=== PATIENT | female | born 1985 | race Caucasian/White ===

== ENCOUNTER 2017-07-20 16:47 | Emergency (ER) | payer OTHER ==
[2017-07-20 17:01] VITALS: BP 160/88
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
[2017-07-20] MEDS ORDERED: Mupirocin Oint 22 GM Tube TOP SCH (17:15)
== END 2017-07-20 17:20 | disposition home or self-care (01) ==
LOC: JD.ED 16:47
DX: T21.47XA Corrosion of unspecified degree of female genital region, initial encounter (principal); I10 Essential (primary) hypertension
CPT/HCPCS: 99283; A9270; 99282

== ENCOUNTER 2018-02-19 12:38 | Observation (INO) | payer BC, OTHER ==
--- NOTE | 2018-02-19 13:07 | EDM.PDOC ---
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 Urine WBC 0-5 (0-5) /hpf Ur Epithelial Cells 0-5 (0-5) /hpf Urine Bacteria Rare (FEW) /hpf Urine Mucus Not seen (FEW) /hpf Urine Opiates Screen Negative (NEGATIVE) Ur Buprenorphine Scrn Negative (NEGATIVE) Ur Oxycodone Screen Negative (NEGATIVE) Urine Methadone Screen Negative (NEGATIVE) Ur Propoxyphene Screen Negative (NEGATIVE) Ur Barbiturates Screen Negative (NEGATIVE) Ur Tricyclics Screen Negative (NEGATIVE) Ur Phencyclidine Scrn Negative (NEGATIVE) Ur Amphetamine Screen Negative (NEGATIVE) U Methamphetamines Scrn Negative (NEGATIVE) U Benzodiazepines Scrn Negative (NEGATIVE) U Cocaine Metab Screen Negative (NEGATIVE) U Marijuana (THC) Screen Negative (NEGATIVE) Ethyl Alcohol (0.00) gm% 02/19/18 02/19/18 02/19/18 Range/Units 19:50 19:50 19:50 WBC (3.98-10.04) K/mm3 RBC (3.98-5.22) M/mm3 Hgb (11.2-15.7) gm/L Hct (34.1-44.9) % MCV (79.4-94.8) fl MCH (25.6-32.2) pg MCHC (32.2-35.5) g/dl RDW Std Deviation (36.4-46.3) fL Plt Count (182-369) K/mm3 MPV (9.4-12.3) fl Neutrophils % (Manual) (40-60) % Band Neutrophils % (0-10) % Lymphocytes % (Manual) (20-40) % Atypical Lymphs % % Monocytes % (Manual) (2-10) % Eosinophils % (Manual) (0.7-5.8) % Basophils % (Manual) (0.1-1.2) Platelet Estimate Plt Morphology Comment RBC Morph Comment D-Dimer, Quantitative (0.19-0.50) mg/L Sodium (136-145) mEq/L Potassium (3.5-5.1) mEq/L Chloride (98-107) mEq/L Carbon Dioxide (21-32) mEq/L Anion Gap (5-15) BUN (7-18) mg/dL Creatinine (0.55-1.02) mg/dL Est Cr Clr Drug Dosing mL/min Estimated GFR (MDRD) (>60) mL/min BUN/Creatinine Ratio (14-18) Glucose (74-106) mg/dL Calcium (8.5-10.1) mg/dL Magnesium 1.5 L (1.8-2.4) mg/dl Total Bilirubin (0.2-1.0) mg/dL AST (15-37) U/L ALT (14-59) U/L Alkaline Phosphatase (46-116) U/L Total Protein (6.4-8.2) g/dl Albumin (3.4-5.0) g/dl Globulin gm/dL Albumin/Globulin Ratio (1-2) Lipase (73-393) U/L TSH 3rd Generation (0.358-3.74) uIU/mL HCG, Qual Negative (NEGATIVE) Urine Color (Yellow) Urine Appearance (Clear) Urine pH (5.0-8.0) Ur Specific Roosevelt (1.005-1.030) Urine Protein (Negative) Urine Glucose (UA) (Negative) Urine Ketones (Negative) Urine Occult Blood (Negative) Urine Nitrite (Negative) Urine Bilirubin (Negative) Urine Urobilinogen (0.2-1.0) Ur Leukocyte Esterase (Negative) Urine RBC (0-5) /hpf Urine WBC (0-5) /hpf Ur Epithelial Cells (0-5) /hpf Urine Bacteria (FEW) /hpf Urine Mucus (FEW) /hpf Urine Opiates Screen (NEGATIVE) Ur Buprenorphine Scrn (NEGATIVE) Ur Oxycodone Screen (NEGATIVE) Urine Methadone Screen (NEGATIVE) Ur Propoxyphene Screen (NEGATIVE) Ur Barbiturates Screen (NEGATIVE) Ur Tricyclics Screen (NEGATIVE) Ur Phencyclidine Scrn (NEGATIVE) Ur Amphetamine Screen (NEGATIVE) U Methamphetamines Scrn (NEGATIVE) U Benzodiazepines Scrn (NEGATIVE) U Cocaine Metab Screen (NEGATIVE) U Marijuana (THC) Screen (NEGATIVE) Ethyl Alcohol 0.00 (0.00) gm% Meds: Medications Generic Name Dose Route Start Last Admin Trade Name Freq PRN Reason Stop Dose Admin Cyclobenzaprine HCl 10 mg 02/20/18 09:07 Flexeril PO ASDIRECTED PRN Spasms Sodium Chloride 1,000 mls @ 150 mls/hr 02/20/18 01:00 02/20/18 09:13 Normal Saline IV 150 mls/hr ASDIRECTED BENJAMIN Administration Loperamide HCl 2 mg 02/20/18 09:47 02/20/18 09:57 Imodium PO 2 mg Q6H PRN Administration Diarrhea Loratadine 1 mg 02/20/18 09:07 Claritin PO DAILY PRN Allergies Ondansetron HCl 4 mg 02/19/18 23:48 Zofran IVPUSH Q8H PRN Nausea/Vomiting Pantoprazole Sodium 40 mg 02/20/18 09:00 02/20/18 09:13 Protonix Iv IVPUSH 40 mg Q12H BENJAMIN Administration (Olopatadine) 0 each 02/20/18 09:15 Patanol Opth EYEBOTH Solution ASDIRECTED BENJAMIN Sodium Chloride 10 ml 02/19/18 13:23 02/19/18 13:33 Saline Flush FLUSH 10 ml ASDIRECTED PRN Administration Keep Vein Open Tramadol HCl 50 mg 02/20/18 09:07 Ultram PO Q6H PRN back pain Discontinued Medications Generic Name Dose Route Start Last Admin Trade Name Freq PRN Reason Stop Dose Admin Acetaminophen 975 mg 02/19/18 20:09 02/19/18 20:16 Tylenol PO 02/19/18 20:10 975 mg NOW ONE Administration Al Hydroxide/Mg Hydroxide 30 0 ml 02/19/18 13:23 02/19/18 13:32 ml/ Lidocaine HCl 15 ml PO 02/19/18 13:24 45 ml ONETIME ONE Administration Hydromorphone HCl 0.5 mg 02/19/18 14:08 02/19/18 14:36 Dilaudid IVPUSH 02/19/18 14:09 0.5 mg ONETIME ONE Administration Hydromorphone HCl 0.5 mg 02/19/18 16:18 02/19/18 16:42 Dilaudid IVPUSH 02/19/18 16:19 0.5 mg ONETIME ONE Administration Hydromorphone HCl 0.5 mg 02/19/18 19:47 02/19/18 20:16 Dilaudid IVPUSH 02/19/18 19:48 0.5 mg ONETIME ONE Administration Sodium Chloride 1,000 mls @ 999 mls/hr 02/19/18 13:44 02/19/18 13:48 Normal Saline IV 02/19/18 14:44 999 mls/hr ONETIME ONE Administration Sodium Chloride 1,000 mls @ 999 mls/hr 02/19/18 16:13 02/19/18 16:21 Normal Saline IV 02/19/18 17:13 999 mls/hr ONETIME ONE Administration Pantoprazole Sodium 40 mg/ 100 mls @ 200 mls/hr 02/19/18 16:34 02/19/18 16:55 Sodium Chloride IV 02/19/18 17:03 Not Given ONETIME ONE Sodium Chloride 1,000 mls @ 999 mls/hr 02/19/18 17:37 02/19/18 17:48 Normal Saline IV 02/19/18 18:37 999 mls/hr ONETIME ONE Administration Sodium Chloride 100 mls @ 4 mls/sec 02/19/18 21:06 02/19/18 21:43 Normal Saline IV 02/19/18 21:07 4 mls/sec ONETIME ONE Administration Sodium Chloride 2,000 mls @ 999 mls/hr 02/19/18 22:43 02/20/18 00:43 Normal Saline IV 02/20/18 00:43 999 mls/hr ONETIME ONE Administration Magnesium Sulfate 2 gm/ Premix 50 mls @ 25 mls/hr 02/19/18 23:54 02/20/18 01: 11 IV 02/20/18 01:53 25 mls/hr ONETIME ONE Administration Ibuprofen 600 mg 02/19/18 21:30 02/19/18 21:53 Motrin PO 02/19/18 21:31 600 mg ONETIME ONE Administration Iopamidol 100 ml 02/19/18 21:06 02/19/18 21:42 Isovue-370 (76%) IVPUSH 02/19/18 21:07 100 ml ONETIME ONE Administration Ondansetron HCl 4 mg 02/19/18 13:23 02/19/18 13:32 Zofran IVPUSH 02/19/18 13:24 4 mg ONETIME ONE Administration Ondansetron HCl 4 mg 02/19/18 16:14 02/19/18 16:22 Zofran IVPUSH 02/19/18 16:15 4 mg ONETIME ONE Administration Pantoprazole Sodium 40 mg 02/19/18 16:54 02/19/18 16:59 Protonix Iv IVPUSH 02/19/18 16:55 40 mg ONETIME ONE Administration Sucralfate 1 gm 02/19/18 16:34 02/19/18 16:58 Carafate PO 02/19/18 16:35 1 gm ONETIME ONE Administration - Re-Assessments/Exams Free Text/Narrative Re-Assessment/Exam: I have examined the patient personally. Agree with Brianne LYNN history and findings on examination. Patient has no blood in her stool. Positive orthostatics. She has vomited 11 times with 4 episodes of diarrhea prior to admission. There's been no ingestion of bad or questional food or recent sick contact. Abdominal discomfort is more generalized with the point of maximal pain along the epigastric region. GI cocktail did alleviate some of the discomfort. Pain is 5 out of 10. Will order x-ray of the abdomen 2 view and also Dilaudid 0.5 mg IVP. First bag of fluids is running at this point. She may need a second and or 3rd. X-ray of the abdomen did not reveal any concerning findings. 02/19/18 17:20 IV fluids are completed. Patient is feeling better. Remains tachycardic. 1734 Reassessment, remains tachycardic. Ordered 1 liter of NS. On reexamination no abdominal pain. Patient remains tachycardic. She has developed a fever of 100.6. She is feeling flushed and very warm. HR 120's. 1935 Patient continues to be tachycardic after 3rd bag of NS. Mouth is not dry. TSH WNL. She has no pain. Ordered D-Dimer patient is on BCP. 02/19/18 20:46 D-dimer 1.25. Patient is on control with a persistent tachycardia even after IV fluids. I ordered CT of the chest PE protocol. She is currently on her period. 02/19/18 20:52 Patient got up to the bathroom to use the restroom. [place] flushed with O2 sats 95% on Room air. Complained of worsening pain to her lower abdomen. Orderd CT of the abdomen and pelvis with IV contrast as well. 02/19/18 22:18 CT abdomen with IV contrast IMPRESSION: Hepatomegaly and suggestion of hepatic steatosis. CT of the chest IMPRESSION: No evidence of central pulmonary embolism. Examination is technically limited. Patients BP is 127/70, HR remains 110, SPO2 98%. Patients oral mucosal remains mildly dry. Pain to the epigastric and abdomen has subsided. She is feeling much more relaxed after having the studies obtained. 02/19/18 22:[address] Olivier she has accepted the patient. Will admit to observation for dehydration and persistent tachycardia. Request additional 2 liters of NS wide open then NS 150ml/hr. Mg has been ordered. 02/20/18 10:28 Departure - Departure Time of Disposition: 17:33 Condition: Good - My Orders Last 24 Hours: My Active Orders 02/19/18 22:50 WBC, STOOL [OP] Stat - Assessment/Plan Last 24 Hours: My Active Orders 02/19/18 22:50 WBC, STOOL [OP] Stat
[2018-02-19] MEDS ORDERED: Sodium Chloride 0.9% 10 ML Syringe FLUSH PRN (13:23)
[2018-02-19] MEDS ORDERED: Ondansetron 4 MG/2 ML SDV IVPUSH ONE ×2 (13:23→16:14)
[2018-02-19] MEDS ORDERED: Alum Hydrox/Mag Hydrox/Simeth 30 ML, Lidocaine 2% 15 ML PO ONE ×2 (13:23)
[2018-02-19] MEDS ORDERED: Sodium Chloride 0.9% 1,000 ML IV ONE ×3 (13:44→17:37)
[2018-02-19] MEDS ORDERED: HYDROmorphone 0.5 MG/0.5 ML SYRINGE IVPUSH ONE ×3 (14:08→19:47)
--- NOTE | 2018-02-19 15:04 | CR ---
Abdomen: Supine and upright views of the abdomen were obtained. Comparison: Prior abdominal x-ray of 03/24/16. Surgical clips are seen within the upper right abdomen. Mild scoliosis is noted. Bowel gas pattern appears normal. No free air is seen. No discrete soft tissue abnormality is appreciated. Impression: 1. Incidental findings. Nothing acute is seen on abdominal x-ray. Diagnostic code #2
[2018-02-19] MEDS ORDERED: Pantoprazole 40 MG in Sodium Chloride 0.9% 100 ML IV ONE (16:34)
[2018-02-19] MEDS ORDERED: Sucralfate Suspension 1 GM/10 ML Cup PO ONE (16:34)
[2018-02-19] MEDS ORDERED: Pantoprazole 40 MG Vial IVPUSH ONE (16:54)
[2018-02-19] MEDS ORDERED: Acetaminophen 325 MG Tab PO ONE (20:09)
[2018-02-19] MEDS ORDERED: Iopamidol 755 Mg/ML 100 ML Bottle IVPUSH ONE (21:06)
[2018-02-19] MEDS ORDERED: Sodium Chloride 0.9% 100 ML IV ONE (21:06)
[2018-02-19] MEDS ORDERED: Ibuprofen 600 MG Tab PO ONE (21:30)
[2018-02-19] MEDS: Sodium Chloride 0.9% 2,000 ML IV ONE (23:05)
[2018-02-19] MEDS ORDERED: Ondansetron 4 MG/2 ML SDV IVPUSH PRN (23:48)
[2018-02-19] MEDS ORDERED: Magnesium Sulfate/Water 2 GM in Premix Bag 1 BAG IV ONE (23:54)
[2018-02-20] MEDS: Sodium Chloride 0.9% 2,000 ML IV ONE (00:43)
[2018-02-20] MEDS: Sodium Chloride 0.9% 1,000 ML IV SCH ×2 (01:47→09:13)
--- NOTE | 2018-02-20 07:09 | CT ---
CT abdomen and pelvis Technique: Multiple axial sections were obtained from above the dome of the diaphragm inferiorly to the pubic symphysis. Intravenous contrast was utilized. No oral contrast has been given. Delayed images were also obtained to the bladder. Comparison: No prior abdominal CT exam, previous abdominal x-ray of 03/24/16. Findings: Visualized lung bases show nothing acute. Liver shows diffuse fatty infiltration. No focal abnormality is identified within the liver. Surgical clips are seen from prior cholecystectomy. Adrenal glands show no nodule. Kidneys show symmetric contrast enhancement without hydronephrosis or mass. Pancreas is normal. Aorta shows no aneurysmal dilatation. No retroperitoneal adenopathy or mesenteric abnormalities are seen. No pelvic mass or adenopathy is seen. Appendix is seen which is normal in size. No free fluid or inflammatory change is seen. Bone window settings were reviewed which show disc space narrowing and osteophytes within the lower thoracic spine. Small fat-containing umbilical hernia is incidentally noted. Delayed images show contrast within the bladder. Impression: 1. Fatty infiltration within the liver and prior cholecystectomy. 2. Nothing acute is appreciated on CT study of the abdomen and pelvis. Diagnostic code #2 Agree with preliminary report issued by [employer] ([employer] preliminary report dictated on 02/19/18, 11:13 PM Central Time)
--- NOTE | 2018-02-20 07:09 | CT ---
CT chest Technique: Multiple axial sections through the chest were obtained. Intravenous contrast was utilized. Study has been performed as a pulmonary angiogram protocol. Comparison: Prior CT chest of 03/24/16. Findings: Pulmonary arteries are not optimally opacified. This diminishes details for smaller pulmonary emboli. No filling defects are seen within the main or segmental branches to indicate pulmonary emboli. More distal pulmonary emboli could be missed. Aorta appears within normal limits in size. No dissection is seen. No pericardial effusion is seen. Mediastinum and hilar regions show no adenopathy or mass. No axillary adenopathy is seen. Lungs show no acute parenchymal densities. Minimal dependent atelectasis is incidentally noted. Slight disc space narrowing and osteophytes are noted within mid and lower thoracic spine. No acute osseous abnormality is appreciated. Impression: 1. Less than optimal pulmonary angiogram. No larger pulmonary emboli within the main or segmental branches are seen. Smaller subsegmental pulmonary emboli could be missed. 2. Other incidental findings as noted above. Diagnostic code #2 Agree with preliminary report issued by [employer] ([facility] preliminary report dictated on 02/19/18, 11:17 PM Central Time)
[2018-02-20] MEDS ORDERED: Pantoprazole 40 MG Vial IVPUSH SCH (09:00)
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
[2018-02-20] MEDS ORDERED: traMADol 50 MG Tab PO PRN (09:07)
[2018-02-20] MEDS ORDERED: Loratadine 10 MG Tab PO PRN (09:07)
[2018-02-20] MEDS ORDERED: Cyclobenzaprine 10 MG Tab PO PRN (09:07)
[2018-02-20] MEDS ORDERED: Loperamide 2 MG Cap PO PRN (09:47)
[2018-02-20] MEDS ORDERED: Potassium Chloride 20 MEQ Tab.ER PO ONE (15:56)
[2018-02-20 16:10] VITALS: BP 136/79
--- NOTE | 2018-02-20 16:16 | PCM.DCSUM1 ---
Discharge Summary - Hospital Course Free Text/Narrative:: 2 year old morbidly obese female with sudden onset of nausea and vomiting associated with lightheadedness. It began at work, the patient denies precipitating factors. She denies SOB/CP, but admits to diaphoresis, abdominal cramping. There has been no blood or mucous in her stool. The abdominal pain/ cramping is not relieved with defecation. The discomfort is described as crampy , however she is on her menstrual cycle. The patient takes OCD, denies recent sexual activity, abnormal vaginal discharge or change in urinary habits. The patient denies sick contact or recent travel. She progressed from N/V (>11 times) to diarrhea during her hospital course.\in the ED. An extensive work up including CT of chest and abdomen/pelvis has been performed which shows no acute findings. Supportive treatment for intractable nausea/vomiting as well as diarrhea. In additional supportive care, the patient was educated on weight loss; she is morbidly obese. - Discharge Data Discharge Date: 02/20/18 Discharge Disposition: Home, Self-Care 01 Condition: Good - Patient Summary/Data Consults: Consultations 02/20/18 10:44 Consult to Dietary [Consult to Sanitary Landfill Operator] [CONS] Routine - Patient Instructions Diet: Heart Healthy Diet Activity: As Tolerated Driving: May Drive Today Showering/Bathing: May Shower Notify Provider of: Fever, Nausea and/or Vomiting - Discharge Plan Prescriptions/Med Rec: Ondansetron [Zofran ODT] 4 mg PO Q6H PRN #15 tab.dis PRN Reason: Nausea/Vomiting Home Medications: Home Meds Alesse Control 1 tab PO DAILY 07/20/17 [History] Cyclobenzaprine [Flexeril] 1 tab PO ASDIRECTED PRN 07/20/17 [History] Loratadine [Claritin] 1 tab PO ASDIRECTED PRN 07/20/17 [History] Mupirocin Oint [Bactroban Oint] 22 gm TOP TID #1 tube 07/20/17 [Rx] Olopatadine [Patanol 0.1% Ophth Soln] 1 drop ASDIRECTED 07/20/17 [History] Ondansetron [Zofran ODT] 4 mg PO Q6H PRN #15 tab.dis 04/23/18 [Rx] traMADol [Ultram] 50 mg PO Q6H PRN 02/20/18 [History] Other Amb Orders: BASIC METABOLIC PANEL,BMP [CHEM] Time Frame: 1 Week, Facility: [facility], Location: [facility] - J MAGNESIUM [CHEM] Location: None Selected Forms: ED Department Discharge Referrals: Maine Gerardo PA-C [Primary Care Provider] - 03/05/18 9:00 am (Please follow up with Maine Gerardo on MondayMarch 05 at 9:00am. Check in at 8:45am. Ask your provider about having a TDaP vaccine.) - Discharge Summary/Plan Comment DC Time >30 min.: No Discharge Summary/Plan Comment: Impression: Dehydration Gastroenteritis OCD use with abnormal D Dimer, negative work up HTN Metabolic Syndrome Morbid obesity Plan: IVF, replace deficit Replace electrolytes Infectious work up; stool studies NPO except meds, advance as tolerated Antispasmodic as needed Daily labs Home meds Diet consult re: weight loss/cholesterol profile DVT/GI prophylaxis - General Info Date of Service: 02/20/18 - Patient Data Vitals - Most Recent: Last Vital Signs Temp 36.7 C 02/20/18 16:07 Pulse 94 02/20/18 16:07 Resp 15 02/20/18 16:07 BP 136/79 02/20/18 16:07 Pulse Ox 100 02/20/18 16:07 Orthostatic Blood Pressure [ 129/83 Standing] Orthostatic Blood Pressure [ 142/92 Sitting] Orthostatic Blood Pressure [ 124/71 Supine] Weight - Most Recent: 134.944 kg I&O - Last 24 hours: Intake & Output 02/20/18 02/20/18 02/20/18 06:59 14:59 22:59 Intake Total 2350 360 600 Output Total 1 Balance 2349 360 600 Lab Results - Last 24 hrs: Laboratory Results - last 24 hr 02/19/18 02/19/18 02/19/18 Range/Units 13:30 14:57 19:30 WBC (3.98-10.04) K/mm3 RBC (3.98-5.22) M/mm3 Hgb (11.2-15.7) gm/L Hct (34.1-44.9) % MCV (79.4-94.8) fl MCH (25.6-32.2) pg MCHC (32.2-35.5) g/dl RDW Std Deviation (36.4-46.3) fL Plt Count (182-369) K/mm3 MPV (9.4-12.3) fl Neutrophils % (Manual) (40-60) % Band Neutrophils % (0-10) % Lymphocytes % (Manual) (20-40) % Atypical Lymphs % % Monocytes % (Manual) (2-10) % Eosinophils % (Manual) (0.7-5.8) % Basophils % (Manual) (0.1-1.2) Platelet Estimate RBC Morph Comment D-Dimer, Quantitative 1.25 H (0.19-0.50) mg/L Sodium (136-145) mEq/L Potassium (3.5-5.1) mEq/L Chloride (98-107) mEq/L Carbon Dioxide (21-32) mEq/L Anion Gap (5-15) BUN (7-18) mg/dL Creatinine (0.55-1.02) mg/dL Est Cr Clr Drug Dosing mL/min Estimated GFR (MDRD) (>60) mL/min BUN/Creatinine Ratio (14-18) Glucose (74-106) mg/dL Hemoglobin A1c (4.50-6.20) % Lactic Acid (0.4-2.0) mmol/L Calcium (8.5-10.1) mg/dL Magnesium (1.8-2.4) mg/dl C-Reactive Protein (<1.0) mg/dL Triglycerides (<150) mg/dL Cholesterol (<200) mg/dL LDL Cholesterol Direct (<100) mg/dL HDL Cholesterol (40-59) mg/dL Lipase (73-393) U/L TSH 3rd Generation 0.765 (0.358-3.74) uIU/mL HCG, Qual (NEGATIVE) Urine Opiates Screen Negative (NEGATIVE) Ur Buprenorphine Scrn Negative (NEGATIVE) Ur Oxycodone Screen Negative (NEGATIVE) Urine Methadone Screen Negative (NEGATIVE) Ur Propoxyphene Screen Negative (NEGATIVE) Ur Barbiturates Screen Negative (NEGATIVE) Ur Tricyclics Screen Negative (NEGATIVE) Ur Phencyclidine Scrn Negative (NEGATIVE) Ur Amphetamine Screen Negative (NEGATIVE) U Methamphetamines Scrn Negative (NEGATIVE) U Benzodiazepines Scrn Negative (NEGATIVE) U Cocaine Metab Screen Negative (NEGATIVE) U Marijuana (THC) Screen Negative (NEGATIVE) Ethyl Alcohol (0.00) gm% 02/19/18 02/19/18 02/19/18 Range/Units 19:50 19:50 19:50 WBC (3.98-10.04) K/mm3 RBC (3.98-5.22) M/mm3 Hgb (11.2-15.7) gm/L Hct (34.1-44.9) % MCV (79.4-94.8) fl MCH (25.6-32.2) pg MCHC (32.2-35.5) g/dl RDW Std Deviation (36.4-46.3) fL Plt Count (182-369) K/mm3 MPV (9.4-12.3) fl Neutrophils % (Manual) (40-60) % Band Neutrophils % (0-10) % Lymphocytes % (Manual) (20-40) % Atypical Lymphs % % Monocytes % (Manual) (2-10) % Eosinophils % (Manual) (0.7-5.8) % Basophils % (Manual) (0.1-1.2) Platelet Estimate RBC Morph Comment D-Dimer, Quantitative (0.19-0.50) mg/L Sodium (136-145) mEq/L Potassium (3.5-5.1) mEq/L Chloride (98-107) mEq/L Carbon Dioxide (21-32) mEq/L Anion Gap (5-15) BUN (7-18) mg/dL Creatinine (0.55-1.02) mg/dL Est Cr Clr Drug Dosing mL/min Estimated GFR (MDRD) (>60) mL/min BUN/Creatinine Ratio (14-18) Glucose (74-106) mg/dL Hemoglobin A1c (4.50-6.20) % Lactic Acid (0.4-2.0) mmol/L Calcium (8.5-10.1) mg/dL Magnesium 1.5 L (1.8-2.4) mg/dl C-Reactive Protein (<1.0) mg/dL Triglycerides (<150) mg/dL Cholesterol (<200) mg/dL LDL Cholesterol Direct (<100) mg/dL HDL Cholesterol (40-59) mg/dL Lipase (73-393) U/L TSH 3rd Generation (0.358-3.74) uIU/mL HCG, Qual Negative (NEGATIVE) Urine Opiates Screen (NEGATIVE) Ur Buprenorphine Scrn (NEGATIVE) Ur Oxycodone Screen (NEGATIVE) Urine Methadone Screen (NEGATIVE) Ur Propoxyphene Screen (NEGATIVE) Ur Barbiturates Screen (NEGATIVE) Ur Tricyclics Screen (NEGATIVE) Ur Phencyclidine Scrn (NEGATIVE) Ur Amphetamine Screen (NEGATIVE) U Methamphetamines Scrn (NEGATIVE) U Benzodiazepines Scrn (NEGATIVE) U Cocaine Metab Screen (NEGATIVE) U Marijuana (THC) Screen (NEGATIVE) Ethyl Alcohol 0.00 (0.00) gm% 02/20/18 02/20/18 02/20/18 Range/Units 06:00 06:00 06:00 WBC 6.32 (3.98-10.04) K/mm3 RBC 4.08 (3.98-5.22) M/mm3 Hgb 11.6 (11.2-15.7) gm/L Hct 36.0 (34.1-44.9) % MCV 88.2 (79.4-94.8) fl MCH 28.4 (25.6-32.2) pg MCHC 32.2 (32.2-35.5) g/dl RDW Std Deviation 44.8 (36.4-46.3) fL Plt Count 305 (182-369) K/mm3 MPV 9.1 L (9.4-12.3) fl Neutrophils % (Manual) 65 H (40-60) % Band Neutrophils % 2 (0-10) % Lymphocytes % (Manual) 30 (20-40) % Atypical Lymphs % 0 % Monocytes % (Manual) 2 (2-10) % Eosinophils % (Manual) 1 (0.7-5.8) % Basophils % (Manual) 0 L (0.1-1.2) Platelet Estimate Adequate RBC Morph Comment Normal D-Dimer, Quantitative (0.19-0.50) mg/L Sodium 139 (136-145) mEq/L Potassium 3.4 L (3.5-5.1) mEq/L Chloride 107 (98-107) mEq/L Carbon Dioxide 22 (21-32) mEq/L Anion Gap 13.4 (5-15) BUN 8 (7-18) mg/dL Creatinine 0.7 (0.55-1.02) mg/dL Est Cr Clr Drug Dosing 107.01 mL/min Estimated GFR (MDRD) > 60 (>60) mL/min BUN/Creatinine Ratio 11.4 L (14-18) Glucose 108 H (74-106) mg/dL Hemoglobin A1c (4.50-6.20) % Lactic Acid 1.2 (0.4-2.0) mmol/L Calcium 7.5 L (8.5-10.1) mg/dL Magnesium 2.2 (1.8-2.4) mg/dl C-Reactive Protein 6.0 H* (<1.0) mg/dL Triglycerides (<150) mg/dL Cholesterol (<200) mg/dL LDL Cholesterol Direct (<100) mg/dL HDL Cholesterol (40-59) mg/dL Lipase 120 (73-393) U/L TSH 3rd Generation (0.358-3.74) uIU/mL HCG, Qual (NEGATIVE) Urine Opiates Screen (NEGATIVE) Ur Buprenorphine Scrn (NEGATIVE) Ur Oxycodone Screen (NEGATIVE) Urine Methadone Screen (NEGATIVE) Ur Propoxyphene Screen (NEGATIVE) Ur Barbiturates Screen (NEGATIVE) Ur Tricyclics Screen (NEGATIVE) Ur Phencyclidine Scrn (NEGATIVE) Ur Amphetamine Screen (NEGATIVE) U Methamphetamines Scrn (NEGATIVE) U Benzodiazepines Scrn (NEGATIVE) U Cocaine Metab Screen (NEGATIVE) U Marijuana (THC) Screen (NEGATIVE) Ethyl Alcohol (0.00) gm% 02/20/18 02/20/18 Range/Units 06:00 06:00 WBC (3.98-10.04) K/mm3 RBC (3.98-5.22) M/mm3 Hgb (11.2-15.7) gm/L Hct (34.1-44.9) % MCV (79.4-94.8) fl MCH (25.6-32.2) pg MCHC (32.2-35.5) g/dl RDW Std Deviation (36.4-46.3) fL Plt Count (182-369) K/mm3 MPV (9.4-12.3) fl Neutrophils % (Manual) (40-60) % Band Neutrophils % (0-10) % Lymphocytes % (Manual) (20-40) % Atypical Lymphs % % Monocytes % (Manual) (2-10) % Eosinophils % (Manual) (0.7-5.8) % Basophils % (Manual) (0.1-1.2) Platelet Estimate RBC Morph Comment D-Dimer, Quantitative (0.19-0.50) mg/L Sodium (136-145) mEq/L Potassium (3.5-5.1) mEq/L Chloride (98-107) mEq/L Carbon Dioxide (21-32) mEq/L Anion Gap (5-15) BUN (7-18) mg/dL Creatinine (0.55-1.02) mg/dL Est Cr Clr Drug Dosing mL/min Estimated GFR (MDRD) (>60) mL/min BUN/Creatinine Ratio (14-18) Glucose (74-106) mg/dL Hemoglobin A1c 6.10 (4.50-6.20) % Lactic Acid (0.4-2.0) mmol/L Calcium (8.5-10.1) mg/dL Magnesium (1.8-2.4) mg/dl C-Reactive Protein (<1.0) mg/dL Triglycerides 160 H (<150) mg/dL Cholesterol 137 (<200) mg/dL LDL Cholesterol Direct 91 (<100) mg/dL HDL Cholesterol 27.0 L (40-59) mg/dL Lipase (73-393) U/L TSH 3rd Generation (0.358-3.74) uIU/mL HCG, Qual (NEGATIVE) Urine Opiates Screen (NEGATIVE) Ur Buprenorphine Scrn (NEGATIVE) Ur Oxycodone Screen (NEGATIVE) Urine Methadone Screen (NEGATIVE) Ur Propoxyphene Screen (NEGATIVE) Ur Barbiturates Screen (NEGATIVE) Ur Tricyclics Screen (NEGATIVE) Ur Phencyclidine Scrn (NEGATIVE) Ur Amphetamine Screen (NEGATIVE) U Methamphetamines Scrn (NEGATIVE) U Benzodiazepines Scrn (NEGATIVE) U Cocaine Metab Screen (NEGATIVE) U Marijuana (THC) Screen (NEGATIVE) Ethyl Alcohol (0.00) gm% ANA Results - Last 24 hrs: Microbiology 02/19/18 22:50 Rotavirus Antigen - Final Stool / Feces NEGATIVE ROTAVIRUS ANTIGEN 02/19/18 22:50 Stool for WBCs - Final Stool / Feces NO WBC SEEN Med Orders - Current: Current Medications Loperamide HCl (Imodium) 2 mg PO Q6H PRN PRN Reason: Diarrhea Last Admin: 02/20/18 09:57 Dose: 2 mg Loratadine (Claritin) 1 mg PO DAILY PRN PRN Reason: Allergies Ondansetron HCl (Zofran) 4 mg IVPUSH Q8H PRN PRN Reason: Nausea/Vomiting Pantoprazole Sodium (Protonix Iv) 40 mg IVPUSH Q12H [facility] Last Admin: 02/20/18 09:13 Dose: 40 mg (Olopatadine) Patanol Opth Solution 0 each EYEBOTH ASDIRECTED [place]EN[place]AMIN Sodium Chloride (Saline Flush) 10 ml FLUSH ASDIRECTED PRN PRN Reason: Keep Vein Open Last Admin: 02/19/18 13:33 Dose: 10 ml Tramadol HCl (Ultram) 50 mg PO Q6H PRN PRN Reason: back pain Discontinued Medications Acetaminophen (Tylenol) 975 mg PO NOW ONE Stop: 02/19/18 20:10 Last Admin: 02/19/18 20:16 Dose: 975 mg Al Hydroxide/Mg Hydroxide 30 (ml/ Lidocaine HCl 15 ml) 0 ml PO ONETIME ONE Stop: 02/19/18 13:24 Last Admin: 02/19/18 13:32 Dose: 45 ml Cyclobenzaprine HCl (Flexeril) 10 mg PO ASDIRECTED PRN PRN Reason: Spasms Hydromorphone HCl (Dilaudid) 0.5 mg IVPUSH ONETIME ONE Stop: 02/19/18 14:09 Last Admin: 02/19/18 14:36 Dose: 0.5 mg Hydromorphone HCl (Dilaudid) 0.5 mg IVPUSH ONETIME ONE Stop: 02/19/18 16:19 Last Admin: 02/19/18 16:42 Dose: 0.5 mg Hydromorphone HCl (Dilaudid) 0.5 mg IVPUSH ONETIME ONE Stop: 02/19/18 19:48 Last Admin: 02/19/18 20:16 Dose: 0.5 mg Sodium Chloride (Normal Saline) 1,000 mls @ 999 mls/hr IV ONETIME ONE Stop: 02/19/18 14:44 Last Admin: 02/19/18 13:48 Dose: 999 mls/hr Sodium Chloride (Normal Saline) 1,000 mls @ 999 mls/hr IV ONETIME ONE Stop: 02/19/18 17:13 Last Admin: 02/19/18 16:21 Dose: 999 mls/hr Pantoprazole Sodium 40 mg/ (Sodium Chloride) 100 mls @ 200 mls/hr IV ONETIME ONE Stop: 02/19/18 17:03 Last Admin: 02/19/18 16:55 Dose: Not Given Sodium Chloride (Normal Saline) 1,000 mls @ 999 mls/hr IV ONETIME ONE Stop: 02/19/18 18:37 Last Admin: 02/19/18 17:48 Dose: 999 mls/hr Sodium Chloride (Normal Saline) 100 mls @ 4 mls/sec IV ONETIME ONE Stop: 02/19/18 21:07 Last Admin: 02/19/18 21:43 Dose: 4 mls/sec Sodium Chloride (Normal Saline) 2,000 mls @ 999 mls/hr IV ONETIME ONE Stop: 02/20/18 00:43 Last Admin: 02/20/18 00:43 Dose: 999 mls/hr Sodium Chloride (Normal Saline) 1,000 mls @ 150 mls/hr IV ASDIRECTED [facility] Last Admin: 02/20/18 09:13 Dose: 150 mls/hr Magnesium Sulfate 2 gm/ Premix 50 mls @ 25 mls/hr IV ONETIME ONE Stop: 02/20/18 01:53 Last Admin: 02/20/18 01:11 Dose: 25 mls/hr Ibuprofen (Motrin) 600 mg PO ONETIME ONE Stop: 02/19/18 21:31 Last Admin: 02/19/18 21:53 Dose: 600 mg Iopamidol (Isovue-370 (76%)) 100 ml IVPUSH ONETIME ONE Stop: 02/19/18 21:07 Last Admin: 02/19/18 21:42 Dose: 100 ml Ondansetron HCl (Zofran) 4 mg IVPUSH ONETIME ONE Stop: 02/19/18 13:24 Last Admin: 02/19/18 13:32 Dose: 4 mg Ondansetron HCl (Zofran) 4 mg IVPUSH ONETIME ONE Stop: 02/19/18 16:15 Last Admin: 02/19/18 16:22 Dose: 4 mg Pantoprazole Sodium (Protonix Iv) 40 mg IVPUSH ONETIME ONE Stop: 02/19/18 16:55 Last Admin: 02/19/18 16:59 Dose: 40 mg Potassium Chloride (Klor-Con M20) 40 meq PO ONETIME ONE Stop: 02/20/18 15:57 Sucralfate (Carafate) 1 gm PO ONETIME ONE Stop: 02/19/18 16:35 Last Admin: 02/19/18 16:58 Dose: 1 gm
== END 2018-02-20 17:10 | disposition home or self-care (01) ==
LOC: JD.ED 12:38 → JD.MS 23:05 → UNDOADMOB 23:05 → JD.MS 23:07
PROVIDERS: ADMIT Internal Medicine Cardiovascular Disease; ATTEND Internal Medicine Cardiovascular Disease
DX: E86.0 Dehydration (principal); K52.9 Noninfective gastroenteritis and colitis, unspecified; F42.8 Other obsessive-compulsive disorder; I10 Essential (primary) hypertension; E66.01 Morbid (severe) obesity due to excess calories; F32.9 Major depressive disorder, single episode, unspecified; K21.9 Gastro-esophageal reflux disease without esophagitis; E88.81 Metabolic syndrome and other insulin resistance; Z68.30 Body mass index [BMI] 30.0-30.9, adult; Z79.899 Other long term (current) drug therapy; J30.81 Allergic rhinitis due to animal (cat) (dog) hair and dander
CPT/HCPCS: 36415; 71275; 74019; 74177; 80048; 80053; 80061; 80306; 81001; 83036; 83605; 83690; 83735; 84443; 84703; 85025; 85379; 86140; 87425; 89055; 96361; 96374; 96375; 96376; 99285; A9270; C9113; G0480; J1170; J2405; J7030; J7040; J7050; Q9967; J3475

== ENCOUNTER 2019-06-26 13:46 | Emergency (ER) | payer BC ==
[2019-06-26 14:02] VITALS: BP 121/75
[2019-06-26] MEDS ORDERED: Ketorolac 60 MG/2 ML SDV IM ONE (16:06)
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
--- NOTE | 2019-06-26 17:30 | US ---
Left upper extremity venous ultrasound: Duplex and color Doppler evaluation was obtained of the left upper extremity right internal jugular vein. Lack of compression as well as phasic flow and augmentation is noted within the upper portion of the left ulnar vein compatible with thrombus. Other veins show normal phasic flow. Compression is seen within the veins except for the subclavian vein due to interference from the clavicle. Impression: 1. Small amount of thrombus within the left ulnar vein. 2. No other venous thrombosis is seen. Diagnostic code #3
[2019-06-26] MEDS ORDERED: Apixaban 5 MG Tab PO ONE (19:21)
== END 2019-06-26 19:31 | disposition home or self-care (01) ==
LOC: JD.ED 13:46
DX: I82.622 Acute embolism and thrombosis of deep veins of left upper extremity (principal); E78.00 Pure hypercholesterolemia, unspecified; I10 Essential (primary) hypertension; F32.9 Major depressive disorder, single episode, unspecified; E11.9 Type 2 diabetes mellitus without complications; Z91.048 Other nonmedicinal substance allergy status; Z88.8 Allergy status to other drugs, medicaments and biological substances; Z79.899 Other long term (current) drug therapy; Z79.82 Long term (current) use of aspirin; Z79.01 Long term (current) use of anticoagulants; Z79.3 Long term (current) use of hormonal contraceptives; Z86.14 Personal history of Methicillin resistant Staphylococcus aureus infection
CPT/HCPCS: 36415; 80053; 85025; 85610; 85730; 93971; 96372; 99284; A9270; J1885

== ENCOUNTER 2019-08-30 20:42 | Emergency (ER) | payer BC ==
[2019-08-30 21:00] VITALS: BP 157/93; PULSE 94
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
[2019-08-30] MEDS ORDERED: Ondansetron 4 MG Tab.DIS PO ONE (22:38)
== END 2019-08-30 22:56 | disposition home or self-care (01) ==
LOC: JD.ED 20:42
DX: N93.8 Other specified abnormal uterine and vaginal bleeding (principal); E78.00 Pure hypercholesterolemia, unspecified; I10 Essential (primary) hypertension; F41.9 Anxiety disorder, unspecified; F32.9 Major depressive disorder, single episode, unspecified; E11.9 Type 2 diabetes mellitus without complications; E66.9 Obesity, unspecified; Z91.048 Other nonmedicinal substance allergy status; Z91.09 Other allergy status, other than to drugs and biological substances; Z88.8 Allergy status to other drugs, medicaments and biological substances; Z79.82 Long term (current) use of aspirin; Z79.899 Other long term (current) drug therapy; Z86.718 Personal history of other venous thrombosis and embolism; Z68.30 Body mass index [BMI] 30.0-30.9, adult
CPT/HCPCS: 36415; 80053; 84443; 84703; 85025; 85610; 85730; 86850; 86900; 86901; 99284; A9270; 99283

== ENCOUNTER 2019-11-20 07:17 | Day surgery (SDC) | payer BC ==
--- NOTE | 2019-11-20 07:09 | PCM.OPNOTE ---
- General Post-Op/Procedure Note Date of Surgery/Procedure: 11/20/19 Operative Procedure(s): Lysis of Adhesions - 15 minutes. Laparoscopic assisted vaginal hysterectomy and bilateral salpingectomy Findings: Omental adhesions to old scar and small incisional hernia noted. Retroverted appearance of the uterus with small subserosal fibroids on anterior surface of the uterus. Normal appearance of the fallopian tubes and ovaries. Mild adhesive disease noted between TAIWO and bladder. Pre Op Diagnosis: Abnormal uterine bleeding - declined further medical management Post-Op Diagnosis: Same Anesthesia Technique: General ET Tube Primary Surgeon: Yelena Garay Secondary Surgeon: Christina Leiva Anesthesia Provider: Niru Roche Reason Marble Finisher Was Necessary: BMI of patient. Speed/safety of procedure Pathology: Cervix, uterus, and bilateral fallopian tubes sent to pathology Fluid Replacement, Intraop: 2,000 Output, Urine Amount: 100 EBL in mLs: 150 Complications: None Condition: Good Free Text/Narrative:: The risks, benefits, indications, potential complications, and alternatives were explained to the patient and informed consent obtained. The patient was taken to the Operating Room where general anesthesia was induced without complication. The patient was placed in dorsal lithotomy with Tyler Stirrups and an exam under anesthesia revealed the findings detailed above. The patient was then prepped and draped in the usual sterile fashion. A sterile bivalve speculum was placed into the vagina and the anterior lip of the cervix was grasped with a single tooth tenaculum and an attempt was made to place a Hulka manipulator. This was unsuccessful given retroverted uterus. Tenaculum and speculum removed. Sponge stick placed in the vagina. A Calderon catheter was placed in sterile fashion. Attention was then turned to the patients abdomen where a Veress needle was carefully introduced into the peritoneal cavity while tenting the abdominal wall. Intraperitoneal placement was confirmed by free flow of saline into the abdomen from a syringe open to gravity and with a low intraabdominal pressure with insufflation of C02 gas on low flow. The gas was increased to high flow and a pneumoperitoneum was obtained with C02 gas to a pressure of 15 mm Hg. A 5 mm skin incision was made in a vertical fashion in the umbilical fold and a 5 mm blunt trocar was inserted into the abdomen with direct visualization of the laparoscope through the clear view trocar lens. 5 mm skin incisions were made in both the left and right lower quadrants approximately 10 cm lateral and 3 cm inferior to the umbilicus. 5 mm blunt trocars were inserted into the abdomen under direct visualization with care to avoid the abdominal wall vasculature. A blunt probe and grasper were inserted through the accessory ports and a survey of the abdomen revealed the findings detailed above. First the LigaSure was used to take down omental adhesions to the anterior abdominal wall and old scar. This took approximately 15 minutes. After this was take down a small incision hernia was noted. Picture documentation done. Next, the right fallopian tube was elevated with the blunt graspers at the fimbriated end. The LigaSure was used to grasp, elevate, cauterize and transect the mesosalpingx from the fimbriated end toward the uterus to the level of the round ligament. The fallopian tube was then amputated at the uterus and removed through the 5 mm port. The round ligament on the right was then elevated, cauterized, and transected with the Ligasure. Hemostasis was noted. Next, the vesicouterine peritoneum was elevated gently with a blunt grasper and the Liagure and blunt dissection were used dissect the vesicouterine peritoneum to make a bladder flap. Two more small bites along the right side of the uterus were made with the Ligasure to skeletonize the uterine artery. Hemostasis was noted. The exact same procedure was carried out on the left. Hemostasis as noted. The CO2 gas was turned off and the laparoscope was removed. Attention was then turned to the vaginal portion of the procedure. A short weighted speculum was placed in the vagina, and the cervix was grasped with a single tooth tenaculum. The cervix was injected circumferentially with about 10 cc of 1% lidocaine with dilute epinephrine. The cervix was then circumferentially incised with a scalpel. A Raytec was used to bluntly dissect the cervix circumferentially until an avascular plane was obtained. The posterior cul-de-sac was entered sharply without difficulty. A 0-Vicryl pop-off suture was placed at six o'clock to include the posterior vaginal mucosa and posterior peritoneum. This stitch was tagged with a straight clamp to help with vaginal cuff closure at the end of the case. The short weighted speculum was replaced by the long weighted speculum. The uterosacral ligaments were grasped on either side with the LigaSure, cauterized, and transected. Hemostasis was assured. The bladder was dissected off the pubovesical cervical fascia anteriorly with a sponge and blunt dissection. The anterior cul-de-sac was then entered sharply without difficulty. The cardinal ligaments were then serially clamped on both sides with the Ligasure, cauterized, and transected. The uterine arteries were then clamped with the LigaSure, cauterized, and transected. Hemostasis was then noted. The fundus and adnexa were confirmed to be free of any further peritoneal attachments and then were pulled out through the vagina. The posterior peritoneum was closed with a running, locked 0 Vicryl suture. The vaginal cuff was closed with a 0-Vicryl in a running locked fashion. Hemostasis was noted. Attention was then again turned to the abdomen. All members of the surgical team changed gloves. The laparoscope was again inserted and the abdomen was again insufflated with CO2. The pedicles were again visualized. Irrigation of the pedicles was performed. Edmundo seal was placed along the vaginal cuff. Hemostasis was confirmed. The patient was taken out of Trendelenberg position. The accessory trocars were removed under direct visualization. The pneumoperitoneum was allowed to escape. The umbilical trocar was removed and lastly the camera was removed from the abdomen under direct visualization to confirm no herniation into the port site. All skin incisions were re- approximated with 4-0 Monocryl and sealed with Dermabond. Hemostasis was noted. A total of ~6 cc of 0.25% Marcaine was injected into the subcutaneous tissues surrounding the skin incisions for local anesthesia. All sponge, lap, needle, and instrument counts were correct x 2. The patient tolerated the procedure well and there were no complications.
[~2019-11-20 07:17] MED LIST: Lactated Ringers 1,000 ML IV SCH; Lidocaine 1%/Sod Bicarbonate in NS 8.4% 1 ML Syringe IDERM PRN; Sodium Chloride 0.9% 10 ML Syringe FLUSH PRN
[2019-11-20] MEDS ORDERED: Enoxaparin 40 MG/0.4 ML Syringe SUBCUT ONE (07:30)
[2019-11-20] MEDS ORDERED: Ondansetron 4 MG/2 ML SDV ONE (07:38)
[2019-11-20] MEDS ORDERED: Propofol 200 MG/20 ML SDV ONE ×2 (07:38→09:31)
[2019-11-20] MEDS ORDERED: ceFAZolin 1 GM Vial ONE ×2 (07:38→09:35)
[2019-11-20] MEDS ORDERED: Lidocaine 1% 4 ML ONE (07:38)
[2019-11-20] MEDS ORDERED: Lactated Ringers 1,000 ML ONE ×3 (07:38→10:52)
[2019-11-20] MEDS ORDERED: Ketorolac 30 MG/ML SDV ONE (07:39)
[2019-11-20] MEDS ORDERED: Dexamethasone 4 MG/ML 5 ML MDV ONE (07:39)
[2019-11-20] MEDS ORDERED: fentaNYL 250 MCG/5 ML SDV ONE ×2 (07:39→10:33)
[2019-11-20] MEDS ORDERED: Midazolam 1 MG/ML 2 ML SDV ONE (07:39)
[2019-11-20] MEDS ORDERED: Succinylcholine/Normal Saline 100 MG/5 ML Syringe ONE (07:39)
[2019-11-20] MEDS ORDERED: Rocuronium 100 MG/10 ML MDV ONE (07:39)
[2019-11-20] MEDS ORDERED: Scopolamine 1.5 MG Transdermal Patch TRDERM STA (08:12)
[2019-11-20] MEDS ORDERED: Bupivacaine 0.5% 30 ML SDV ONE (08:22)
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
[2019-11-20] MEDS ORDERED: Phenylephrine/Normal Saline 100 MCG/ML 10 ML Syringe ONE (09:47)
[2019-11-20] MEDS: Lidocaine 1% with EPINEPHrine 1:100,000 20 ML MDV ONE ×2 (10:15→10:30)
[2019-11-20] MEDS ORDERED: HYDROmorphone 0.5 MG/0.5 ML Syringe IVPUSH PRN ×2 (10:16→11:43)
[2019-11-20] MEDS ORDERED: Ondansetron 4 MG/2 ML SDV IVPUSH PRN ×2 (10:16→11:43)
[2019-11-20] MEDS ORDERED: fentaNYL 100 MCG/2 ML SDV IVPUSH PRN ×2 (10:16→11:43)
[2019-11-20] MEDS ORDERED: Neostigmine Methylsulfate 1 MG/ML 5 ML Syringe ONE (10:44)
--- NOTE | 2019-11-20 11:44 | PCM.POSTAN ---
POST ANESTHESIA ASSESSMENT - MENTAL STATUS Mental Status: Other (Drowsy) - VITAL SIGNS Vital Signs: Last Vital Signs Temp 36.6 C 11/20/19 11:35 Pulse 91 11/20/19 11:35 Resp 17 11/20/19 11:35 BP 118/72 11/20/19 11:35 Pulse Ox 95 11/20/19 11:35 - RESPIRATORY Respiratory Status: Respiratory Rate WNL, Airway Patent, O2 Saturation Stable, Supplemental Oxygen - CARDIOVASCULAR CV Status: Pulse Rate WNL, Blood Pressure Stable - GASTROINTESTINAL GI Status: No Symptoms - POST OP HYDRATION Hydration Status: Adequate & Stable
[2019-11-20 13:18] VITALS: BP 134/93; PULSE 96
--- NOTE | 2019-11-20 13:47 | PCM48HPAN ---
Post Anesthesia Note - EVALUATION WITHIN 48HRS OF ANESTHETIC Vital Signs in Normal Range: Yes Patient Participated in Evaluation: Yes Respiratory Function Stable: Yes Airway Patent: Yes Cardiovascular Function Stable: Yes Hydration Status Stable: Yes Pain Control Satisfactory: Yes Nausea and Vomiting Control Satisfactory: Yes Mental Status Recovered: Yes Vital Signs: Last Vital Signs Temp 36.9 C 11/20/19 12:30 Pulse 96 11/20/19 13:15 Resp 16 11/20/19 13:15 BP 134/93 H 11/20/19 13:15 Pulse Ox 98 11/20/19 13:15
== END 2019-11-20 13:43 | disposition home or self-care (01) ==
LOC: JD.SDS 07:17
PROVIDERS: ATTEND Obstetrics & Gynecology
DX: D25.1 Intramural leiomyoma of uterus (principal); N72 Inflammatory disease of cervix uteri; N80.0 Endometriosis of uterus; N83.8 Other noninflammatory disorders of ovary, fallopian tube and broad ligament; K66.0 Peritoneal adhesions (postprocedural) (postinfection); E55.9 Vitamin D deficiency, unspecified; E11.9 Type 2 diabetes mellitus without complications; G47.33 Obstructive sleep apnea (adult) (pediatric); Z99.89 Dependence on other enabling machines and devices; Z91.048 Other nonmedicinal substance allergy status; Z91.09 Other allergy status, other than to drugs and biological substances; Z88.8 Allergy status to other drugs, medicaments and biological substances; Z79.899 Other long term (current) drug therapy; Z79.82 Long term (current) use of aspirin
CPT/HCPCS: 36415; 58552; 80048; 81025; 82962; 85025; 86850; 86900; 86901; A9270; J0690; J1100; J1650; J2001; J2250; J2370; J2405; J2704; J2710; J3010; J3490; J7120; J0330; J1885

== ENCOUNTER 2020-05-05 16:27 | Emergency (ER) | payer BC ==
[2020-05-05 16:50] VITALS: BP 143/88; PULSE 106
[2020-05-05] MEDS ORDERED: Acetaminophen/HYDROcodone 325-5 MG Tab PO ONE (17:30)
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
--- NOTE | 2020-05-05 18:39 | US ---
Ultrasound posterior ear: Multiple real-time images posterior to the right ear are noted. Enlarged lymph node is seen in area of lump which appears swollen. This measures about 1.7 x 0.9 x 1.2 cm. This is most likely enlarged on an inflammatory basis. 2nd lymph node is seen within the right upper neck measuring 1.8 x 0.6 x 1.4 cm which is likely slightly prominent on in inflammatory basis. No additional abnormality is seen. Impression: 1. 2 lymph nodes as noted above. Diagnostic code #2 This report was dictated in MDT
== END 2020-05-05 19:29 | disposition home or self-care (01) ==
LOC: JD.ED 16:27
DX: R59.0 Localized enlarged lymph nodes (principal); E78.00 Pure hypercholesterolemia, unspecified; I10 Essential (primary) hypertension; E11.9 Type 2 diabetes mellitus without complications; Z79.84 Long term (current) use of oral hypoglycemic drugs; E66.9 Obesity, unspecified; Z68.42 Body mass index [BMI] 45.0-49.9, adult; Z91.09 Other allergy status, other than to drugs and biological substances; Z88.8 Allergy status to other drugs, medicaments and biological substances; Z79.899 Other long term (current) drug therapy
CPT/HCPCS: 76536; 99283; A9270

== ENCOUNTER 2020-06-10 11:21 | Emergency (ER) | payer BC ==
[2020-06-10 12:01] VITALS: BP 134/92; PULSE 104
[2020-06-10] MEDS ORDERED: Sodium Chloride 0.9% 10 ML Syringe FLUSH PRN (12:24)
[2020-06-10] MEDS ORDERED: Sodium Chloride 0.9% 1,000 ML IV ONE (12:27)
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
--- NOTE | 2020-06-10 13:12 | CR ---
Chest: Portable view of the chest was obtained. Comparison: Prior chest x-ray of 03/24/16. Heart size and mediastinum are normal. Lungs are clear with no acute parenchymal change. Minimal scoliosis is noted within the spine. Impression: 1. Nothing acute is seen on portable chest x-ray. Diagnostic code #2 Study was dictated in MDT
== END 2020-06-10 15:07 | disposition home or self-care (01) ==
LOC: JD.ED 11:21
DX: N12 Tubulo-interstitial nephritis, not specified as acute or chronic (principal); I89.8 Other specified noninfective disorders of lymphatic vessels and lymph nodes; I10 Essential (primary) hypertension; E78.00 Pure hypercholesterolemia, unspecified; E11.9 Type 2 diabetes mellitus without complications; E66.9 Obesity, unspecified; Z91.048 Other nonmedicinal substance allergy status; Z91.09 Other allergy status, other than to drugs and biological substances; Z88.8 Allergy status to other drugs, medicaments and biological substances; Z68.42 Body mass index [BMI] 45.0-49.9, adult; Z20.828 Contact with and (suspected) exposure to other viral communicable diseases; Z79.899 Other long term (current) drug therapy
CPT/HCPCS: 36415; 71045; 80053; 83735; 85007; 85027; 86140; 86308; 87635; 99285; J7030; 99283; U0002

== ENCOUNTER 2020-06-13 17:51 | Emergency (ER) | payer BC ==
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
[2020-06-13 21:05] VITALS: BP 131/86; PULSE 99
== END 2020-06-13 21:06 | disposition home or self-care (01) ==
LOC: JD.ED 17:51
DX: S39.012A Strain of muscle, fascia and tendon of lower back, initial encounter (principal); E78.00 Pure hypercholesterolemia, unspecified; I10 Essential (primary) hypertension; E11.9 Type 2 diabetes mellitus without complications; E66.9 Obesity, unspecified; Z68.42 Body mass index [BMI] 45.0-49.9, adult; Z91.09 Other allergy status, other than to drugs and biological substances; Z88.8 Allergy status to other drugs, medicaments and biological substances; Z91.048 Other nonmedicinal substance allergy status; X58.XXXA Exposure to other specified factors, initial encounter
CPT/HCPCS: 36415; 80048; 81001; 84703; 85025; 99283

== ENCOUNTER 2020-12-30 12:09 | Emergency (ER) | payer BC ==
[2020-12-30] MEDS ORDERED: Iopamidol 755 Mg/ML 100 ML Bottle IVPUSH ONE (12:48)
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
[2020-12-30] MEDS: Sodium Chloride 0.9% 10 ML Syringe FLUSH PRN ×2 (12:54→13:33)
[2020-12-30] MEDS ORDERED: Sodium Chloride 0.9% 250 ML IV SCH (13:00)
--- NOTE | 2020-12-30 13:50 | CT ---
CT chest Technique: Multiple axial sections were obtained through the chest. Intravenous contrast was utilized. Study has been performed as a pulmonary angiogram protocol. Findings: Pulmonary arteries are moderately well opacified. No discrete filling defects are seen to indicate definite pulmonary embolism. Thoracic aorta shows no aneurysm. Mediastinum shows normal-appearing lymph nodes. Pericardium shows no effusion around the heart. Prior cholecystectomy is noted. Nothing acute is seen within the visualized upper abdominal structures. Lung window settings were reviewed which show no acute abnormality. Mild areas of groundglass appearance are seen most likely related to the patient's body habitus. Bone window settings were reviewed and show scattered degenerative change within the spine. Sternum appears intact. No discrete rib abnormality is appreciated. Impression: 1. No findings of pulmonary embolism. 2. Slight groundglass appearance scattered within the lungs most likely relating to patient body habitus. 3. Mild degenerative change within the spine. 4. Nothing acute is seen. Diagnostic code #2
[2020-12-30] MEDS ORDERED: Ketorolac 30 MG/ML SDV IVPUSH ONE (15:05)
--- NOTE | 2020-12-30 15:20 | US ---
Left lower extremity deep venous ultrasound: Duplex and color Doppler evaluation was obtained of the right and left common femoral, left superficial femoral, left popliteal, left posterior tibial and left peroneal veins. Comparison: No prior lower extremity venous ultrasound is available. Findings: Normal phasic flow, augmentation and compression is seen. Impression: 1. No findings of deep venous thrombosis within the left lower extremity or within the right common femoral vein. Diagnostic code #1
--- NOTE | 2020-12-30 15:20 | US ---
Left upper extremity venous ultrasound: Duplex and color Doppler evaluation was obtained of the right and left internal jugular, left subclavian, left axillary, left brachial, left basilic, left radius and left ulnar veins. Comparison: Prior left upper extremity venous ultrasound of 06/26/19. Findings: Normal compression, phasic flow and augmentation is seen. Impression: 1. No evidence of venous thrombosis within the left upper extremity or within the right internal jugular vein. Diagnostic code #1
[2020-12-30 16:27] VITALS: BP 160/86; PULSE 89
== END 2020-12-30 16:05 | disposition home or self-care (01) ==
LOC: JD.ED 12:09
DX: M79.622 Pain in left upper arm (principal); M79.652 Pain in left thigh; E78.00 Pure hypercholesterolemia, unspecified; I10 Essential (primary) hypertension; E11.9 Type 2 diabetes mellitus without complications; E66.9 Obesity, unspecified; Z68.42 Body mass index [BMI] 45.0-49.9, adult; Z88.8 Allergy status to other drugs, medicaments and biological substances; Z91.048 Other nonmedicinal substance allergy status; Z79.899 Other long term (current) drug therapy; Z79.84 Long term (current) use of oral hypoglycemic drugs
CPT/HCPCS: 36415; 71275; 71275-26; 80053; 84484; 85025; 86140; 93005; 93010; 93971-26-LT; 93971-LT; 96374; 99284; 99285-25; J1885; Q9967

== ENCOUNTER 2021-03-09 08:46 | Emergency (ER) | payer BC ==
[2021-03-09 09:12] VITALS: BP 150/95; PULSE 97
[2021-03-09] MEDS ORDERED: Metoclopramide 10 MG/2 ML SDV IVPUSH ONE (09:32)
[2021-03-09] MEDS ORDERED: Magnesium Citrate Solution 296 ML Bottle PO ONE (10:23)
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
--- NOTE | 2021-03-09 10:31 | CR ---
Abdomen: Supine view of the abdomen was obtained. Mild increased stool is seen within the colon. Surgical clips are noted from prior cholecystectomy. Slight calcifications within the pelvis likely representing phleboliths. Bony structures are within normal limits for the patient's age. Impression: 1. Slight increased stool within the colon. 2. Other findings believed to be incidental as noted above. Diagnostic code #2
== END 2021-03-09 11:00 | disposition home or self-care (01) ==
LOC: JD.ED 08:46
DX: K59.00 Constipation, unspecified (principal); E78.00 Pure hypercholesterolemia, unspecified; I10 Essential (primary) hypertension; E11.9 Type 2 diabetes mellitus without complications; E66.9 Obesity, unspecified; Z68.42 Body mass index [BMI] 45.0-49.9, adult; Z91.048 Other nonmedicinal substance allergy status; Z88.1 Allergy status to other antibiotic agents; Z88.8 Allergy status to other drugs, medicaments and biological substances; Z79.899 Other long term (current) drug therapy
CPT/HCPCS: 36415; 74018; 80053; 85025; 86140; 96374; 99284; A9270; J2765; 99283

== ENCOUNTER 2021-09-27 09:15 | Emergency (ER) | payer BC ==
[2021-09-27] MEDS ORDERED: Acetaminophen/HYDROcodone 325-5 MG Tab PO ONE (09:59)
--- NOTE | 2021-09-27 10:47 | CR ---
Right wrist: 4 views of the right wrist were obtained. Comparison: No prior right wrist study is available. Joint spaces are preserved. No fracture, dislocation or other bony abnormality is appreciated. Impression: 1. Nothing acute seen on 4-view right wrist exam. Diagnostic code #1
--- NOTE | 2021-09-27 10:48 | CR ---
Right ankle: 4 views of the right ankle were obtained. Comparison: No prior ankle study. Small plantar spur is seen. Ankle mortise is symmetric. Soft tissue swelling is present. No fracture, dislocation or other bony abnormality is appreciated. Impression: 1. Soft tissue swelling. 2. Small plantar spur. 3. No acute bony abnormality is seen on right ankle study. Diagnostic code #2
--- NOTE | 2021-09-27 10:48 | CR ---
Pelvis and right hip: AP view of the pelvis was obtained as well as AP and frog leg lateral view of the right hip. Comparison: No previous pelvis or hip study is available. Sacroiliac joints appear within normal limits. Joint spaces within both hips are maintained. No fracture, dislocation or other bony abnormality is appreciated. Impression: 1. Nothing acute is seen on AP pelvis or 2-view right hip exam. Diagnostic code #1
--- NOTE | 2021-09-27 11:26 | CR ---
Right foot: 4 views of the right foot were obtained. Comparison: No previous foot study is available. Minimal bunion deformity is noted. Joint spaces are preserved. No fracture, dislocation or other bony abnormality is seen. Impression: 1. Minimal bunion deformity. 2. Right foot study is otherwise unremarkable. Diagnostic code #2
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
[2021-09-27 13:08] VITALS: BP 126/81; PULSE 92
== END 2021-09-27 12:58 | disposition home or self-care (01) ==
LOC: JD.ED 09:15
DX: S63.501A Unspecified sprain of right wrist, initial encounter (principal); S93.401A Sprain of unspecified ligament of right ankle, initial encounter; S70.01XA Contusion of right hip, initial encounter; E78.00 Pure hypercholesterolemia, unspecified; E11.9 Type 2 diabetes mellitus without complications; E66.9 Obesity, unspecified; Z68.42 Body mass index [BMI] 45.0-49.9, adult; Z88.8 Allergy status to other drugs, medicaments and biological substances; Z91.048 Other nonmedicinal substance allergy status; Z79.899 Other long term (current) drug therapy; W11.XXXA Fall on and from ladder, initial encounter
CPT/HCPCS: 29515; 73110; 73502; 73610; 73630; 99283; A9270

== ENCOUNTER 2022-04-21 12:51 | Emergency (ER) | payer BC ==
[2022-04-21] MEDS ORDERED: Sodium Chloride 0.9% 10 ML Syringe FLUSH PRN (13:40)
[2022-04-21] MEDS ORDERED: methylPREDNISolone Sodium Succinate 125 MG/2 ML SDV IVPUSH PRN (13:50)
[2022-04-21] MEDS ORDERED: EPINEPHrine 1 MG/ML SDV IM PRN (13:50)
[2022-04-21] MEDS ORDERED: Famotidine 20 MG/2 ML SDV IVPUSH PRN (13:50)
[2022-04-21] MEDS ORDERED: diphenhydrAMINE 50 MG/ML SDV IVPUSH PRN (13:50)
[2022-04-21] MEDS ORDERED: Sodium Chloride 0.9% 10 ML Syringe FLUSH SCH (14:00)
[2022-04-21 14:26] VITALS: PULSE 82
[2022-04-21 17:57] VITALS: BP 111/69
== END 2022-04-21 15:30 | disposition home or self-care (01) ==
LOC: JD.ED 12:51
DX: U07.1 COVID-19 (principal); L73.9 Follicular disorder, unspecified; E11.9 Type 2 diabetes mellitus without complications; E66.9 Obesity, unspecified; E78.00 Pure hypercholesterolemia, unspecified; K21.9 Gastro-esophageal reflux disease without esophagitis; Z68.41 Body mass index [BMI] 40.0-44.9, adult; Z88.8 Allergy status to other drugs, medicaments and biological substances; Z91.048 Other nonmedicinal substance allergy status; Z79.899 Other long term (current) drug therapy
CPT/HCPCS: 36415; 71045; 80053; 85025; 85379; 86140; 99284; M0222; Q0222

== ENCOUNTER 2022-09-22 09:41 | Emergency (ER) | payer BC ==
[2022-09-22] MEDS ORDERED: HYDROmorphone 1 MG/ML Syringe IVPUSH STA (11:15)
[2022-09-22] MEDS ORDERED: Sodium Chloride 0.9% 1,000 ML IV SCH (11:15)
[2022-09-22] MEDS ORDERED: Ondansetron 4 MG/2 ML SDV IVPUSH ONE (11:15)
[2022-09-22 12:22] LABS: ESTIMATED GFR 113 mL/min (>60)
[2022-09-22] MEDS ORDERED: Morphine 4 MG/ML Syringe IVPUSH ONE (13:35)
[2022-09-22 17:35] VITALS: BP 135/95; PULSE 82
== END 2022-09-22 17:07 | disposition home or self-care (01) ==
LOC: JD.ED 09:41
DX: N83.202 Unspecified ovarian cyst, left side (principal); E78.00 Pure hypercholesterolemia, unspecified; E11.9 Type 2 diabetes mellitus without complications; E66.9 Obesity, unspecified; Z88.8 Allergy status to other drugs, medicaments and biological substances; Z91.048 Other nonmedicinal substance allergy status; Z79.899 Other long term (current) drug therapy
CPT/HCPCS: 36415; 74176; 76857; 80053; 81001; 83690; 85025; 86140; 96361; 96374; 96375; 99284; J1170; J2270; J2405; J7030